=== PATIENT | male | born 1955 | race Caucasian/White ===

== ENCOUNTER 2019-04-04 17:56 | Inpatient (IN) | payer MEDICARE, OTHER ==
[~2019-04-04] VITALS: Ht 165.1 cm; Wt 73.5 kg
[2019-04-04 18:01] VITALS: BP 114/72
[2019-04-04] MEDS ORDERED: LIPITOR10 MG PO (18:10)
[2019-04-04] MEDS ORDERED: DULCOLAX5 MG PO (18:10)
[2019-04-04] MEDS ORDERED: LISINOPRIL20 MG PO (18:10)
[2019-04-04] MEDS ORDERED: PRILOSEC OTC20 MG PO (18:10)
[2019-04-04] MEDS ORDERED: COLACE100 MG PO (18:10)
[2019-04-04] MEDS ORDERED: ANTIVERT25 MG PO (18:10)
[2019-04-04] MEDS ORDERED: BRILINTA60 MG PO (18:11)
[2019-04-04] MEDS ORDERED: PROTONIX40 M2 PO (18:11)
[2019-04-04 18:18] LABS: ABSOLUTE BASOPHILS 0.1 thou/uL (0.0-0.2); ABSOLUTE EOSINOPHILS 0.3 thou/uL (0.0-0.7); ABSOLUTE LYMPHOCYTES 2.9 thou/uL (0.8-5.3); ABSOLUTE NEUTROPHILS 4.8 thou/uL (1.6-8.1); BASOPHILS 1.2 %; EOSINOPHILS 2.8 %; HEMATOCRIT 46.2 % (42.0-52.0); HEMOGLOBIN 15.8 gm/dL (14.0-18.0); LYMPHOCYTES 32.3 %; MCHC 34.1 g/dL (28.0-37.0); MCV 99.5 fL (80.0-100.0); MONOCYTES 11.1 %; MPV 8.5 fl. (7.2-11.1); NUCLEATED RBCS 0 /100WBC; PLATELET COUNT* 311 thou/uL (150-400); POLYS 52.6 %; RBC 4.64 mil/uL (4.50-6.00); RDW-CV 13.9 % (10.5-14.5); WBC 9.1 thou/uL (4.0-11.0)
[2019-04-04 18:24] LABS: ANION GAP 14 mmol/L (7-16); APTT 30.3 Seconds (25.0-31.3); BUN 17 mg/dL (7-18); CALCIUM 8.3 mg/dL (8.5-10.1); CHLORIDE 102 mmol/L (98-107); CO2 23 mmol/L (21-32); GLUCOSE 110 mg/dL (70-99); POTASSIUM 3.8 mmol/L (3.5-5.1); PROTIME 10.7 Seconds (9.20-11.50); SODIUM 139 mmol/L (136-145)
[2019-04-04 18:38] LABS: ALBUMIN 3.6 g/dL (3.4-5.0); ALKALINE PHOSPHATASE 87 U/L (46-116); CK-MB MASS 0.7 ng/mL (<0.5-3.6); LIPASE 188 U/L (73-393); MAGNESIUM 1.8 mg/dL (1.8-2.4); NT-PRO BRAIN NAT PEPTIDE 71 pg/mL (<300); SGOT 19 U/L (15-37); SGPT 20 U/L (30-65); TOTAL BILIRUBIN 0.4 mg/dL (<0.1-1.0); TOTAL PROTEIN 7.3 g/dL (6.4-8.2); TROPONIN-I LEVEL <0.06 ng/mL (<0.06)
[2019-04-04 20:50] VITALS: BP 96/64
[2019-04-04 20:51] VITALS: BP 104/68
[2019-04-04 21:26] VITALS: BP 93/55
[2019-04-05] VITALS: BP 95/52
--- NOTE | 2019-04-05 03:49 | NUR ---
ASSUMED CARE OF PT AT 2114 FROM THE ER. PT IS ALERT AND ORIENTED. VSS. PERRLA. PT IS UP AD BESS. PT REPORTS INTERMITTENT CHEST PAIN. PT IS IN SINUS RYTHM ON THE TELEMETRY. PT IS RESTING COMFORTABLY IN BED. RESPIRATIONS ARE EVEN AND NONLABORED. WILL CONTINUE TO MONITOR PT.
[2019-04-05 04:00] VITALS: BP 95/59
[2019-04-05 08:00] VITALS: BP 110/63
--- NOTE | 2019-04-05 10:58 | EKG ---
[place] [address] ELECTROCARDIOGRAM REPORT Name: NESTOR HAMEED Room: [address] ADM IN [facility]#: [id number] Admission: 04/04/19 Attend Phys: Zoey Edge Discharge: Date of : 59 Report #: [id number] THIS REPORT FOR: //name// [facility] ED Test Date: 2019-04-04 Test Time: 17:58:38 Pat Name: NESTOR HAMEED Department: Room: [facility] Gender: M 23 Dealer: : 1955 Requested By: Yariel Smith Order Number: [id number] MD: Fabián Monroe Measurements Intervals [place] Rate: 79 P: 70 OR: 162 QRS: 86 QRSD: 90 T: 62 QT: 366 QTc: 420 Interpretive Statements Sinus rhythm Borderline right axis deviation No previous ECG available for comparison Electronically Signed On 04-05-2019 10:58:45 CDT by Fabián Monroe [email or web address] <ELECTRONICALLY SIGNED> By: Fabián Monroe MD, [facility] 04/05/19 1058 1758 1758 Fabián Monroe MD, FACC /EPI
[2019-04-05 12:00] VITALS: BP 103/70
--- NOTE | 2019-04-05 14:11 | CON ---
[address] [address] CONSULTATION Name: HAMEEDNESTOR Vianca Room: [address] IN ..#: [id number] Admission: 04/04/19 Attend Phys: Zoey Edge Discharge: Date of : 59 Report #: [id number] THIS REPORT FOR: //name// CC: BRIGID physician/PCP Houston Connelly DATE OF SERVICE: 04/05/2019 CARDIOLOGY CONSULTATION HISTORY OF PRESENT ILLNESS: The patient is a 63-year-old single white male who I was asked to see in the hospital today after he complained of chest pain. The history is obtained from the patient. Unfortunately, no old records available. The patient states about a month ago, he was having chest pain and was admitted to the hospital in [place], [place], by the name of [facility]. He apparently had 2 coronary stents placed at that time. He continued to have chest pain after his discharge and was admitted 3 days later and had a repeat heart catheterization and was told the stents were patent. He was discharged, but notes that since that time, he has a continuous chest pain that is there all day long. It is not related to exertion or meals. Denies any fever or coughing. He has been short of breath. He notes some numbness in his arms. He has felt nauseated. He has had no trauma to his chest. He notes occasional episodes of heart race, but has had no syncope or edema. He denied any trauma to his chest. He has had no difficulty swallowing. PAST MEDICAL HISTORY: He has had shoulder surgery, knee surgery. No history of hypertension or diabetes. He previously was on no medications. He notes that he is illiterate, cannot read or write. He therefore does not know what medications he is on because his daughter gives him his medications. MEDICATIONS: According to list his daughter supplied, he is on Lipitor, lisinopril, omeprazole, Protonix and Brilinta. ALLERGIES: He has no known drug allergies. FAMILY HISTORY: Positive for heart disease. SOCIAL HISTORY: He is from his . 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 He is on disability due to arthritis. He currently lives with his children either in [place] or here in [place]. Smokes half pack of cigarettes a day. No alcohol abuse, no illicit drug use. REVIEW OF SYSTEMS: He has had no history of stroke. He has had asthma. He had an EGD in the past that showed no significant ulcer disease, no kidney disease, no cancer, no psychiatric [place] [address] CONSULTATION Name: NESTOR HAMEED Room: [address]#: [id number] Admission: 04/04/19 Attend Phys: Zoey Edge Discharge: Date of : 59 Report #: [id number] PHYSICAL EXAMINATION: GENERAL: Revealed a middle-aged male lying in bed. He appeared in no acute distress. VITAL SIGNS: He had a blood pressure of 100/60, his pulse is 70, he is afebrile. HEENT: He was anicteric. Conjunctivae pink. Mucous members moist. NECK: Veins do not appear distended. No carotid bruits. CHEST: Clear to auscultation. CARDIOVASCULAR: Regular rate and rhythm, no murmur or rub. ABDOMEN: Soft. EXTREMITIES: Had no edema. Dorsalis pedis pulse 2+ bilaterally. SKIN: Warm, dry. NEUROLOGIC: Nonfocal. LYMPH: No adenopathy. MUSCULOSKELETAL: No joint effusion. DIAGNOSTIC DATA: His ECG showed a normal sinus rhythm. There was no ST or T-wave change. His workup last night, he had a portable chest x-ray that showed normal heart size and clear lung ellington. There was some atelectasis. LABORATORY DATA: Sodium 139, creatinine 1.0. Liver function studies were normal. Troponins all 0.06. White blood cell count 9.1, hemoglobin 15.8. IMPRESSION AND RECOMMENDATIONS: 1. Chest pain. Recent stents. No evidence of acute coronary syndrome. Recommend stress echo. 2. Recent coronary artery stents. The patient on Brilinta. I would recommend aspirin 81 mg a day. 3. Hyperlipidemia. The patient is on a statin drug. 4. Tobacco abuse. 5. Chronic pain syndrome. The patient is on disability. <ELECTRONICALLY SIGNED> By: Fabián Monroe MD, [facility] 04/05/19 1411 0849 [id number] Alisa Monroe MD, FACC /nt
--- NOTE | 2019-04-05 14:52 | EXE ---
[place] [address] STRESS ECHOCARDIOGRAM Name: NESTOR HAMEED Room: [address] IN [facility]#: [id number] Admission: 04/04/19 Attend Phys: Houston Connelly Discharge: Date of : 59 Date of Service: 04/05/19 1452 Report #: [id number] THIS REPORT FOR: //name// APPROVED REPORT Study performed: 04/05/2019 13:48:01 Exam: Stress Echocardiogram Indication: Chest pain , Dyspnea Patient Location: In-Patient Stress Nurse: Urvashi Hanley RN Room #: [facility] Supervising Physician: Fabián Monroe MD Status: routine Ht: 5 ft 5 in HR: 53 bpm BP: 117/74 mmHg Rhythm: NSR Medical History Medications: Atorvastatin, Ticagrelor, ASA Allergies: No known drug allergies Cardiac Risk Factors: FHX of CAD, Hyperlipidemia, HTN, Smoking Previous Cardiac Procedures: PCI Procedure The patient underwent an Exercise Stress Test using the Michael Protocol. Blood pressure, heart rate, and EKG were monitored. An Echocardiogram was performed by vacuum technician in four stages in quad fashion. At peak stress, four selected images were obtained and placed side by side with resting images for comparison. Stress Test Details Stress Test: Exercise stress testing was performed using a Michael protocol. HR Resting HR: 53 bpm Max Heart Rate (APMHR): 159 bpm Max HR Achieved: 136 bpm Target HR (85% APMHR): 135 bpm % of APMHR: 85 Recovery HR: 92 bpm HR response to stress: Normal HR response to stress BP Resting BP: 117/74 [place] [address] STRESS ECHOCARDIOGRAM Name: YOSEPHNESTOR Coley Room: [address]#: [id number] Admission: 04/04/19 Attend Phys: Houston Connelly Discharge: Date of : 59 Date of Service: 04/05/19 1452 Report #: [id number] Max BP: 156/102 mmHg Recovery BP: 125/74 mmHg BP response to stress: Normal blood pressure response to stress. ECG Resting ECG: Sinus Rhythm Stress ECG: Sinus Rhythm, nonspecific ST-T abnormalities ST Change: Upsloping ST depression Maximum ST Deviation: 0.5 mm Arrhythmia: None Recovery ECG: Sinus Rhythm Recovery ST Change: Normal Recovery ST Deviation: 0 mm Recovery Arrhythmia: VPC Clinical Reason for Termination: Maximal effort Exercise duration: 7 min sec Highest Stage Achieved: Stage 3: 3.4 mph at 14% grade. Exercise capacity: 8.56 METs Pre-Stress Echo The resting Echocardiogram showed normal left ventricular contractility with an estimated Ejection Fraction of about 55-60%. Post-Stress Echo The stress Echocardiogram showed normal left ventricular contractility with an estimated Ejection Fraction of about >70%. Conclusion Clinical Response: Non-ischemic Exercise Capacity: Average Stress ECG Response: Equivocal Stress Echo Images: Non-ischemic low risk stress echo for predicting future cardiac events Other Information Study Quality: Excellent <Conclusion> low risk stress echo for predicting future cardiac events <ELECTRONICALLY SIGNED> By: Fabián Monroe MD, [facility] 04/05/19 1452 145 145 Fabián Monroe MD, FACC /INF
[2019-04-05 15:39] VITALS: BP 90/54
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
--- NOTE | 2019-04-05 18:23 | NUR ---
ASSUMED PT CARE AT 1000 FROM [facility]O JORDAN. 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 O2 SAT 97-100% ON 2 LPM VIA NC, PT STATES DOES NOT WEAT O2 AT HOME AND DENIES SOA, PT NOT DYSPNEIC WITH EXERTION, REMOVED O2, PT REMAINS 95-97%RA, PT TOLERATING WELL. C/O "CHEST PAIN", PRN PAIN MEDS ON BOARD, PT TOLERATING WELL. STRESS TEST COMPLETED AND SHOWED NO ISCHEMIA PER DR OLIVER. HOURLY ROUNDING COMPLETED.
[2019-04-05 20:00] VITALS: BP 98/64
[2019-04-06] VITALS: BP 102/58
[2019-04-06 02:41] LABS: URINE BILIRUBIN NEGATIVE (Negative); URINE BLOOD NEGATIVE (Negative); URINE CLARITY CLEAR; URINE COLOR YELLOW; URINE GLUCOSE-RANDOM NEGATIVE (Negative); URINE KETONES NEGATIVE (Negative); URINE LEUKOCYTES NEGATIVE (Negative); URINE NITRITE NEGATIVE (Negative); URINE PROTEIN NEGATIVE (Negative); URINE UROBILINOGEN 0.2 E.U./dl (0.2-1.0)
[2019-04-06 04:00] VITALS: BP 94/56
--- NOTE | 2019-04-06 05:11 | NUR ---
ASSUMED PT CARE APPROX 1930. PT IS AWAKE AND ORIENTED X4. VSS ON RA. TUBE CLEANER IN PLACE TRACING SR/SB. ASSESSMENT DONE AND CHARTED. PT C/O "CHEST PAIN" RELIEVED BY PAIN MEDS GIVEN PER DEC. PT WAS ABLE TO SLEEP MOST OF THE NIGHT, CALL LIGHT WITHIN REACH. HOURLY ROUNDING DONE FOR PT SAFETY.
[2019-04-06 05:20] VITALS: BP 119/75
[2019-04-06 08:00] VITALS: BP 113/66
[2019-04-06 11:12] LABS: CALCIUM 8.6 mg/dL (8.5-10.1); CREATININE 1.1 mg/dL (0.6-1.3); POTASSIUM 4.1 mmol/L (3.5-5.1)
[2019-04-06 12:03] VITALS: BP 113/66
[2019-04-06 12:48] VITALS: BP 113/66
--- NOTE | 2019-04-06 12:52 | NUR ---
I ASSUMED CARE OF THE PATIENT AT 0700. HE IS ALERT AND ORIENTED X4 AND IS UP WITH STAND BY ASSIST AND HAS A STEADY GATE. HE IS FROM [facility] AND IS HERE VISITING HIS KIDS. HOURLY ROUNDING IS COMPLETED AND PATIENT NEEDS ARE MET. PAIN IS TOLERATED AND MEDS ARE REFUSED. BED IS IN THE LOW LOCKED POSITION AND CALL LIGHT IS IN REACH. DISCHARGE IS UNDERSTOOD AND SCRIPT IS GIVEN. HE IS PROGRESSING TOWARD HIS GOALS. PATIENT DISCHARGED TO HOME AT 1250.
== END 2019-04-06 12:56 | disposition home or self-care (01) | DRG 303 ==
LOC: M.ERS 17:56 → M.2W 18:45 → M.TBA-ER 18:45 → M.2W 20:34
PROVIDERS: Family Medicine; ADMIT Internal Medicine
DX: I25.119 Atherosclerotic heart disease of native coronary artery with unspecified angina pectoris (principal); E78.00 Pure hypercholesterolemia, unspecified; G89.4 Chronic pain syndrome; F17.210 Nicotine dependence, cigarettes, uncomplicated; K21.9 Gastro-esophageal reflux disease without esophagitis; I10 Essential (primary) hypertension; Z95.5 Presence of coronary angioplasty implant and graft; Z82.49 Family history of ischemic heart disease and other diseases of the circulatory system; Z79.899 Other long term (current) drug therapy

== ENCOUNTER 2019-06-01 10:24 | Inpatient (IN) | payer OTHER ==
[~2019-06-01] VITALS: Ht 175.3 cm; Wt 74.1 kg
[~2019-06-01 10:24] MED LIST: ANTIVERT25 MG PO; BRILINTA60 MG PO; COLACE100 MG PO; DULCOLAX5 MG PO; LIPITOR10 MG PO; LISINOPRIL20 MG PO; PRILOSEC OTC20 MG PO; PROTONIX40 M2 PO
[2019-06-01 10:25] VITALS: BP 141/81
[2019-06-01 10:50] LABS: ABSOLUTE BASOPHILS 0.1 thou/uL (0.0-0.2); ABSOLUTE EOSINOPHILS 0.1 thou/uL (0.0-0.7); ABSOLUTE LYMPHOCYTES 1.8 thou/uL (0.8-5.3); ABSOLUTE MONOCYTES 0.5 thou/uL (0.0-1.2); ABSOLUTE NEUTROPHILS 4.7 thou/uL (1.6-8.1); BASOPHILS 1.3 %; EOSINOPHILS 1.2 %; HEMATOCRIT 45.1 % (42.0-52.0); HEMOGLOBIN 15.2 gm/dL (14.0-18.0); LYMPHOCYTES 24.9 %; MCH 33.6 pg (26.0-34.0); MCHC 33.7 g/dL (28.0-37.0); MCV 99.8 fL (80.0-100.0); NUCLEATED RBCS 0 /100WBC; PLATELET COUNT* 313 thou/uL (150-400); POLYS 65.6 %; RBC 4.52 mil/uL (4.50-6.00); WBC 7.2 thou/uL (4.0-11.0)
[2019-06-01 11:00] LABS: ANION GAP 10 mmol/L (7-16); BUN 13 mg/dL (7-18); CALCIUM 8.7 mg/dL (8.5-10.1); CHLORIDE 103 mmol/L (98-107); CO2 26 mmol/L (21-32); CREATININE 1.2 mg/dL (0.6-1.3); GLUCOSE 105 mg/dL (70-99); POTASSIUM 3.7 mmol/L (3.5-5.1); SODIUM 139 mmol/L (136-145)
[2019-06-01 11:02] LABS: INR 1.1; PROTIME 11.3 Seconds (9.20-11.50)
[2019-06-01 11:10] LABS: ALBUMIN 3.4 g/dL (3.4-5.0); ALKALINE PHOSPHATASE 86 U/L (46-116); LIPASE 142 U/L (73-393); MAGNESIUM 1.7 mg/dL (1.8-2.4); NT-PRO BRAIN NAT PEPTIDE 57 pg/mL (<300); SGOT 15 U/L (15-37); SGPT 19 U/L (30-65); TOTAL BILIRUBIN 0.4 mg/dL (<0.1-1.0); TROPONIN-I LEVEL <0.06 ng/mL (<0.06)
[2019-06-01 12:39] VITALS: BP 94/54
[2019-06-01 13:00] VITALS: BP 101/68
[2019-06-01 14:49] LABS: CREATININE 1.1 mg/dL (0.6-1.3); POTASSIUM 4.6 mmol/L (3.5-5.1)
[2019-06-01 16:00] VITALS: BP 119/72
--- NOTE | 2019-06-01 19:19 | 2DMMODE ---
[place] [address] 2 D/M-MODE ECHOCARDIOGRAM Name: YOSEPHNESTOR Vianca Room: [address] IN [facility]#: [id number] Admission: 06/01/19 Attend Phys: Juno Barrow Discharge: Date of : 59 Date of Service: 06/01/19 191 Report #: [id number] THIS REPORT FOR: //name// APPROVED REPORT Study performed: 06/01/2019 14:27:10 EXAM: Comprehensive 2D, Doppler, and color-flow Echocardiogram Patient Location: In-Patient Room #: [facility] Status: routine BSA: 1.93 HR: 55 bpm BP: 101/68 mmHg Rhythm: NSR Other Information Study Quality: Good Indications ANGINA 2D Dimensions IVSd: 11.51 (7-11mm) LVOT Diam: 19.32 (18-24mm) LVDd: 40.41 mm PWd: 8.90 (7-11mm) Ascending Ao: 29.10 (22-36mm) LVDs: 21.77 (25-40mm) Aortic Root: 31.15 mm Volumes Left Atrial Volume (Systole) LA ESV Index: 20.60 mL/m2 Aortic Valve AoV Peak Tanner.: 1.25 m/s AO Peak Gr.: 6.22 mmHg LVOT Max P.86 mmHg AO Mean Gr.: 3.51 mmHg LVOT Mean P.31 mmHg LVOT Max V: 1.10 m/s AO V2 VTI: 25.91 cm LVOT Mean V: 0.70 m/s ANDRA (VTI): 2.72 cm2 LVOT V1 VTI: 24.08 cm Mitral Valve E/A Ratio: 1.19 MV Decel. Time: 196.83 ms MV E Max Tanner.: 0.77 m/[place] [address] 2 D/M-MODE ECHOCARDIOGRAM Name: NESTOR HAMEED Room: [address] IN [facility]#: [id number] Admission: 06/01/19 Attend Phys: Juno Barrow Discharge: Date of : 59 Date of Service: 06/01/191917 Report #: [id number] MV PHT: 57.08 ms MVA (PHT): 3.85 cm2 TDI E/Lateral E': 6.42 E/Medial E': 6.42 Medial E' Tanner.: 0.12 m/s Lateral E' Tanner.: 0.12 m/s Pulmonary Valve PV Peak Tanner.: 0.89 m/s PV Peak Gr.: 3.18 mmHg Left Ventricle The left ventricle is normal size. There is normal LV segmental wall motion. There is normal left ventricular wall thickness. Left ventricular systolic function is normal. LVEF is 60-65%. The left ventricular diastolic function is normal. Right Ventricle The right ventricle is normal size. The right ventricular systolic function is normal. Atria The left atrium size is normal. The right atrium size is normal. Aortic Valve The aortic valve is normal in structure. No aortic regurgitation is present. There is no aortic valvular stenosis. Mitral Valve The mitral valve is normal in structure. There is no mitral valve regurgitation noted. No evidence of mitral valve stenosis. Tricuspid Valve The tricuspid valve is normal in structure. There is no tricuspid valve regurgitation noted. Pulmonic Valve The pulmonary valve is normal in structure. There is no pulmonic valvular regurgitation. Great Vessels The aortic root is normal in size. IVC is normal in size and collapses >50% [place] [address] 2 D/M-MODE ECHOCARDIOGRAM Name: NESTOR HAMEED Room: [address] IN [facility]#: [id number] Admission: 06/01/19 Attend Phys: Juno Barrow Discharge: Date of : 59 Date of Service: 06/01/19 1918 Report #: [id number] There is no pericardial effusion. <Conclusion> The left ventricle is normal size. There is normal left ventricular wall thickness. Left ventricular systolic function is normal. LVEF is 60-65%. The left ventricular diastolic function is normal. IVC is normal in size and collapses >50% with inspiration. <ELECTRONICALLY SIGNED> By: Fitz Al MD, [facility] 06/01/191917 17 17 Fitz Al MD, FACC /INF
--- NOTE | 2019-06-01 19:26 | EKG ---
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: : 1955 Requested By: Ivan Saeed Order Number: [id number] MD: Kris Henderson Measurements Intervals [place] Rate: 73 P: 81 [place]: 166 QRS: 95 QRSD: 86 T: 58 QT: 374 QTc: 413 Interpretive Statements Sinus rhythm Ventricular premature complex Right axis deviation Compared to ECG 04/04/2019 17:58:38 Ventricular premature complex(es) now present Electronically Signed On 06-01-2019 19:26:27 CDT by Kris Henderson [email or web address] <ELECTRONICALLY SIGNED> By: Kris Henderson MD, [facility] 06/01/19 1926 1029 1029 Kris Henderson MD, [facility] /EPI
[2019-06-02] VITALS: BP 90/64
[2019-06-02 04:00] VITALS: BP 88/58
[2019-06-02 04:10] LABS: HEMATOCRIT 44.3 % (42.0-52.0); HEMOGLOBIN 14.6 gm/dL (14.0-18.0); MCH 33.3 pg (26.0-34.0); MCV 101.1 fL (80.0-100.0); MPV 8.3 fl. (7.2-11.1); RBC 4.38 mil/uL (4.50-6.00); RDW-CV 13.9 % (10.5-14.5); WBC 7.8 thou/uL (4.0-11.0)
[2019-06-02 04:43] LABS: ALKALINE PHOSPHATASE 76 U/L (46-116); ANION GAP 9 mmol/L (7-16); BUN 13 mg/dL (7-18); CHLORIDE 104 mmol/L (98-107); CO2 27 mmol/L (21-32); GLUCOSE 84 mg/dL (70-99); MAGNESIUM 1.9 mg/dL (1.8-2.4); POTASSIUM 4.1 mmol/L (3.5-5.1); SGOT 14 U/L (15-37); SGPT 16 U/L (30-65); SODIUM 140 mmol/L (136-145); TOTAL BILIRUBIN 0.3 mg/dL (<0.1-1.0); TOTAL PROTEIN 6.4 g/dL (6.4-8.2); TROPONIN-I LEVEL <0.06 ng/mL (<0.06)
--- NOTE | 2019-06-02 11:30 | NUR ---
MET WITH PT TO DISCUSS HOME SITUATION/DC PLANNING. PT LIVES IN [place] BUT HAS BEEN STAYING WITH HIS DTR IN [place] RECENTLY. HE IS INDEPENDENT AND ACTIVE. USES NO EQUIPMENT. STATES HE IS LOOKING TO FIND A DR IN THIS AREA, DISCUSSED AND GAVE LOCAL LIST. PT DENIES OTHER DC NEEDS AT THIS TIME
[2019-06-02 12:44] VITALS: BP 108/56
[2019-06-02 16:39] VITALS: BP 114/68
--- NOTE | 2019-06-02 17:27 | CARDNUC ---
[place] [address] CARDIAC NUCLEAR IMAGING REPORT Name: HAMEEDNESTOR G Room: [address] IN [facility]#: [id number] Admission: 06/01/19 Attend Phys: Juno Barrow Discharge: Date of : 59 Date of Service: 06/02/19 1727 Report #: [id number] THIS REPORT FOR: //name// APPROVED REPORT Imaging Protocol: Rest Tc-99m/Stress Tc-99m 1 day Study performed: 06/01/2019 15:40:00 Indication: Chest pain Patient Location: Out-Patient Stress Tech: Angela Cohen Stress Nurse: Michelle Jorge RN NM Tech:NAMRATA Posada Ht: 5 ft 5 in Wt: 170 lbs BSA: 1.85 m2 BMI: 28.28 Medical History Medical History: chest pain, CAD Medications: ASA, statin, ticagrelor, lisinopril Allergies: NKDA Cardiac Risk Factors: Age, HLP, HTN, tobacco use Previous Cardiac Procedures: PCI Meds Held (24 hrs): none Resting Data Rest SPECT myocardial perfusion imaging was performed in supine position 30 minutes following the intravenous injection of 10.5 mCi of Tc-99m Sestamibi. Time of rest injection: 754 Date: 06/02/2019 The images were gated to evaluate regional wall motion and calculate left ventricular ejection fraction. Administration Route: IV Administration Site: Left AC Pharmacologic Stress Pharmacologic stress test was performed by injecting Regadenoson 0.4 mg IV push over 10-15 seconds immediately followed by the intravenous injection of 35.7 mCi of Tc-99m Sestamibi. Time of stress injection: 924 Date: 06/02/2019 Administration Route: IV Administration Site: Left AC Gated Stress SPECT was performed 40 minutes after stress injection. The images were gated to evaluate regional [place] [address] CARDIAC NUCLEAR IMAGING REPORT Name: NESTOR HAMEED Room: [address] IN [facility]#: [id number] Admission: 06/01/19 Attend Phys: Juno Barrow Discharge: Date of : 59 Date of Service: 06/02/19 1727 Report #: [id number] left ventricular ejection fraction. Prone imaging was performed. Stress Test Details Stress Test: Pharmacologic stress was paired with low level exercise. HR Max Heart Rate (APMHR): 159 bpm Resting HR: 59 bpm Target HR (85% APMHR): 135 bpm Max HR Achieved: 117 bpm % of APMHR: 73 Recovery HR: 73 bpm BP Resting BP: 102/59 mmHg Max BP: 175/80 mmHg Recovery BP: 127/72 mmHg ECG Resting ECG: Sinus Rhythm Stress ECG: Sinus Tachycardia ST Change: None Arrhythmia: None Recovery ECG: Sinus Rhythm Recovery ST Change: None Recovery Arrhythmia: None Clinical Reason for Termination: protocol completed Stress Symptoms: none The patient tolerated Lexiscan infusion without significant symptoms. Stress ECG Conclusion The baseline 12-lead EKG shows sinus rhythm with no significant ST or T wave abnormality. EKGs obtained during and post Lexiscan infusion show sinus rhythm and sinus tachycardia with no significant ST or T wave changes when compared baseline. Study Quality Study: Good Artifact: No artifact Study Data At rest, the left ventricular ejection fraction was 56%.. Post stress, the left ventricular ejection was 60%.. TID = 0.96. [place] [address] CARDIAC NUCLEAR IMAGING REPORT Name: NESTOR HAMEED Room: [address]#: [id number] Admission: 06/01/19 Attend Phys: Juno Barrow Discharge: Date of : 59 Date of Service: 06/02/19 1727 Report #: [id number] Perfusion Normal left ventricular perfusion. Wall Motion Normal left ventricular wall motion. Nuclear Conclusion ECG Findings: negative for ischemia Clinical Findings: negative for ischemia Nuclear Findings: negative for ischemia Exercise Capacity: not assessed Left Ventricular Function: normal Risk Study: low Myocardial perfusion images show no defect to suggest infarct or ischemia. Left ventricular systolic function appears normal on gated studies. This is a low risk study. <Conclusion> The baseline 12-lead EKG shows sinus rhythm with no significant ST or T wave abnormality. EKGs obtained during and post Lexiscan infusion show sinus rhythm and sinus tachycardia with no significant ST or T wave changes when compared baseline. <ELECTRONICALLY SIGNED> By: Kris Henderson MD, [facility] 06/02/191726 26 26 Kris Henderson MD, FACC /INF
--- NOTE | 2019-06-02 18:38 | NUR ---
DURING THIS SHIFT-PT HAD A CARD STRESS TEST- RESULTS SHOWED NEGATIVE, PT HAD A CT SCAN RESULTS WERE NEGATIVE. PT VSS, PT IS IN BED AT THIS TIME WITH CALL LIGHT IN REACH. PT DENIES ANY NEEDS AT THIS TIME. PT IS COMPLIANT WITH CARES. WILL CONT TO MONITOR THIS SHIFT.
[2019-06-03] VITALS: BP 104/65
[2019-06-03 04:00] VITALS: BP 109/64
[2019-06-03 07:55] VITALS: BP 96/62
--- NOTE | 2019-06-03 09:24 | NUR ---
ASSUMED CARE OF PT AT 0730. PT RESTING IN BED WAITING FOR BREAKFAST. PT A&0X4, DENIES ANY PAIN OR SHORTNESS OF BREATH AT THIS TIME. PT STATES HE FEELS BETTER TODAY AND IS READY TO GO HOME. 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 RATE IN THE 50'S. PT ON RA SAT 98%. PT UP AD BESS IN ROOM. PT GOAL FOR TODAY IS REMAIN FREE FROM CHEST PAIN AND DISCHARGE PLANNING TO HOME. AM ASSESSMENT CHARTED. MEDICATIONS PER DEC. PT REPOSITIONS SELF. HOURLY ROUDNING OBSERVED. BED IN LOW POSITION. CALL LIGHT WITHIN REACH. WILL CONTINUE PLAN OF CARE.
[2019-06-03 11:19] VITALS: BP 96/62
[2019-06-03 11:44] VITALS: BP 116/71
[2019-06-03 15:13] VITALS: BP 89/51
[2019-06-03 16:24] LABS: URINE BILIRUBIN NEGATIVE (Negative); URINE BLOOD NEGATIVE (Negative); URINE CLARITY CLEAR; URINE COLOR YELLOW; URINE GLUCOSE-RANDOM NEGATIVE (Negative); URINE KETONES NEGATIVE (Negative); URINE LEUKOCYTES-REFLEX NEGATIVE (Negative); URINE NITRITE-REFLEX NEGATIVE (Negative); URINE PROTEIN NEGATIVE (Negative); URINE SPECIFIC GRAVITY 1.015 (1.005-1.030); URINE UROBILINOGEN 0.2 E.U./dl (0.2-1.0)
--- NOTE | 2019-06-03 18:19 | NUR ---
NO ACUTE CHANGES THROUGHOUT SHIFT. REFER TO CHARTING. PT DENIES ANY PAIN THIS AFTERNOON. ORDERS RECEIVED FOR CT ABD AND XRAY OF RIBS. REFER TO RESULTS. MILK OF MAG GIVEN FOR CONSTIPATION. REFER TO EMAR. URINALYSIS OBTAINED- NEGATIVE-REFER TO RESULTS. CONTINUES TO TRACE SB/SR ON THE APPLICATION DEVELOPMENT INTERN. ON RA SAT UPPER 90'S. DENIES ANY SHORTNESS OF BREATH. PT PROGRESSING TOWARDS GOALS. PROBABLE DISCHARGE HOME TOMORROW 06/04. MEDICATIONS PER DEC. PT REPOSITIONS SELF. HOURLY ROUNDING OBSERVED. BED IN LOW POSITION. CALL LIGHT WITHIN REACH. WILL CONTINUE PLAN OF CARE.
[2019-06-04] VITALS: BP 115/75
[2019-06-04 04:00] VITALS: BP 114/63
[2019-06-04 04:37] LABS: HEMATOCRIT 46.6 % (42.0-52.0); HEMOGLOBIN 15.7 gm/dL (14.0-18.0); MCH 33.7 pg (26.0-34.0); MCHC 33.7 g/dL (28.0-37.0); MCV 100.2 fL (80.0-100.0); MPV 8.3 fl. (7.2-11.1); RBC 4.65 mil/uL (4.50-6.00); RDW-CV 13.8 % (10.5-14.5); WBC 7.1 thou/uL (4.0-11.0)
[2019-06-04 04:47] LABS: ALBUMIN 3.1 g/dL (3.4-5.0); CALCIUM 8.4 mg/dL (8.5-10.1); MAGNESIUM 2.1 mg/dL (1.8-2.4); POTASSIUM 4.1 mmol/L (3.5-5.1); TOTAL BILIRUBIN 0.5 mg/dL (<0.1-1.0); TOTAL PROTEIN 6.5 g/dL (6.4-8.2)
[2019-06-04 08:00] VITALS: BP 89/51
--- NOTE | 2019-06-04 09:00 | NUR ---
ASSUMED CARE OF PT AT 0730. PT RESTING IN BED WAITING FOR BREAKFAST. PT A&0X4, DENIES ANY PAIN OR SHORTNESS OF BREATH AT THIS TIME. 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 RATE IN THE 50'S. ON RA SAT UPPER 90'S. PT UP AD BESS IN ROOM. PT GOAL FOR TODAY IS TO REMAIN FREE FROM PAIN AND DISCHARGE HOME. AM ASSESSMENT CHARTED. MEDICATIONS PER MAR. PT REPOSITIONS SELF. HOURLY ROUNDING OBSERVED. BED IN LOW POSITION. CALL LIGHT WITHIN REACH. WILL CONTINUE PLAN OF CARE.
[2019-06-04 11:19] VITALS: BP 94/65
[2019-06-04] MEDS ORDERED: COLACE100 MG PO (15:33)
[2019-06-04] MEDS ORDERED: DULCOLAX5 MG PO (15:33)
--- NOTE | 2019-06-04 16:55 | NUR ---
DISCHARGE ORDERS RECEIVED. DISCHARGE INSTRUCTIONS, CARE NOTES AND FOLLOW UP APPTS GIVEN TO PT. PT COMMUNICATES UNDERSTANDING OF DISCHARGE TEACHING. IV AND RECAPPER REMOVED. PT DISCHARGED WITH ALL BELONGINGS AND PAPERWORK VIA WHEELCHAIR WITH NURSING STAFF TO FRIENDS OWN PERSONAL VEHICLE.
== END 2019-06-04 16:55 | disposition home or self-care (01) | DRG 206 ==
LOC: M.ERS 10:24 → M.TBA-ER 11:42 → M.2W 11:42
PROVIDERS: Emergency Medicine Emergency Medical Services; ADMIT Family Medicine
DX: M94.0 Chondrocostal junction syndrome [Tietze] (principal); K21.9 Gastro-esophageal reflux disease without esophagitis; I10 Essential (primary) hypertension; E78.5 Hyperlipidemia, unspecified; J44.9 Chronic obstructive pulmonary disease, unspecified; I25.10 Atherosclerotic heart disease of native coronary artery without angina pectoris; Z96.611 Presence of right artificial shoulder joint; E78.00 Pure hypercholesterolemia, unspecified; K59.00 Constipation, unspecified; F17.210 Nicotine dependence, cigarettes, uncomplicated; I25.2 Old myocardial infarction; Z95.5 Presence of coronary angioplasty implant and graft; Z79.899 Other long term (current) drug therapy; Z82.5 Family history of asthma and other chronic lower respiratory diseases; Z71.6 Tobacco abuse counseling